=== PATIENT | female | born 1970 | race Asian ===

== ENCOUNTER → 2018-07-10 | Outpatient (CLI) | payer OTHER | LOC: BRMIMAGING 13:38 | PROVIDERS: ATTEND Internal Medicine Hematology & Oncology | DX: Z12.31 Encounter for screening mammogram for malignant neoplasm of breast (principal); Z13.820 Encounter for screening for osteoporosis; M85.89 Other specified disorders of bone density and structure, multiple sites; Z85.43 Personal history of malignant neoplasm of ovary ==